=== PATIENT | female | born 1980 | race African-American/Black ===

== ENCOUNTER 2022-04-13 15:01 | Emergency (ER) | payer BC ==
[2022-04-13 16:03] LABS: Bacteria/HPF 1+ HPF (None Seen); Bilirubin Negative (Negative); Blood, Urine Trace (Negative); Clarity Clear (Clear); Glucose, Urine (Dipstick) Normal (Negative); Ketone, Urine Negative (Negative); Leukocyte 500 Leu/uL (Negative); Nitrite Negative (Negative); Protein, Urine (Dipstick) Negative (Neg-Trace); Specific Gravity, Urine 1.009 (1.002-1.036); Squamous Epithelial 0-3 HPF (0-3); Urobilinogen Normal mg/dL (Less than 2); pH, Urine 6.5 (5.0-9.0)
[2022-04-13 16:04] LABS: Pregnancy Test - Urine (BHCG) Negative (Negative); Pregu Control Background? CLEAR/WHITE (CLR/WHITE); Pregu Control Bar Appear? YES (CONTROL BAR); Specific Gravity 1.009 (1.002-1.036)
[2022-04-13] MEDS ORDERED: cefTRIAXone\\ROCEPHIN 500 MG VIAL ONE (16:40)
[2022-04-14 19:12] LABS: Chlamydia by PCR *Indeterminate (NotDetected); GC by PCR *Indeterminate (NotDetected)
== END 2022-04-13 17:41 | disposition home or self-care (01) ==
LOC: ERS 15:01
DX: N72 Inflammatory disease of cervix uteri (principal); N76.0 Acute vaginitis; F17.210 Nicotine dependence, cigarettes, uncomplicated
CPT/HCPCS: 81003; 81015; 81025; 87480; 87491; 87510; 87591; 87660; 96372; 99283; J0696

== ENCOUNTER 2023-05-09 22:45 | Emergency (ER) | payer BC, SELFPAY ==
[2023-05-09] MEDS ORDERED: Dexamethasone 10 MG/ML VIAL ONE (23:40)
[2023-05-10 00:21] LABS: Influenza A by NAA Not Detected (NotDetected); SARS-CoV-2 NAA Rapid Test Not Detected (NotDetected)
== END 2023-05-10 01:01 | disposition home or self-care (01) ==
LOC: ERS 22:45
DX: J01.90 Acute sinusitis, unspecified (principal); F17.210 Nicotine dependence, cigarettes, uncomplicated
CPT/HCPCS: 96372; 99283; J1100

== ENCOUNTER 2023-05-15 21:28 | Emergency (ER) | payer SELFPAY | END 2023-05-15 22:52 | disposition home or self-care (01) | LOC: ERS 21:28 | DX: R42 Dizziness and giddiness (principal); F17.210 Nicotine dependence, cigarettes, uncomplicated | CPT/HCPCS: 99283 ==

== ENCOUNTER 2023-09-23 04:55 | Emergency (ER) | payer SELFPAY ==
[2023-09-23 05:24] LABS: #Basophils 0.04 10x3/uL (0.0-0.2); %Basophils 0.8 % (0.0-1.0); %Eosinophils 1.2 % (0.0-10.0); %Lymphocytes 30.7 % (21.0-51.0); %Monocytes 8.4 % (0.0-10.0); %Neutrophils 58.9 % (42.0-75.0); Hemoglobin 8.9 g/dL (12.0-16.0); Mean Corpuscular HGB CONC 30.7 g/dL (32.0-36.0); Mean Corpuscular Hemoglobin 22.8 pg (27.0-31.0); Mean Corpuscular Volume 74.4 fL (78.0-98.0); Mean Platelet Volume 9.2 fL (7.4-10.4); Platelet Count 418 10x3/uL (130-400); RBC Distribution Width 19.7 % (11.5-14.5)
[2023-09-23 05:38] LABS: ALT (SGPT) 25 U/L (8-55); AST (SGOT) 35 U/L (5-34); Albumin 3.6 g/dL (3.5-5.0); Alkaline Phosphatase 91 U/L (40-110); Anion Gap 14 mmol/L (10-20); BUN (Urea Nitrogen) 10 mg/dL (7.0-18.7); Bilirubin, Total 0.3 mg/dL (0.2-1.2); Calc. Creatinine Clearance 0 mL/min (70-130); Carbon Dioxide 21 mmol/L (22-29); Chloride 106 mmol/L (98-107); Estimated GFR 91; Globulin 4.1 g/dL (2.4-3.5); Glucose 137 mg/dL (70-105); Protein, Total 7.7 g/dL (6.0-8.3); Sodium 137 mmol/L (136-145)
[2023-09-23] MEDS ORDERED: Acetaminophen 500 MG TAB ONE (08:43)
[2023-09-23] MEDS ORDERED: Dexamethasone 10 MG/ML VIAL ONE (08:43)
[2023-09-23] MEDS ORDERED: Ketorolac Tromethamine 30 MG (1 mL) VIAL ONE (08:43)
[2023-09-23 09:30] LABS: Influenza A by NAA Not Detected (NotDetected); Influenza B by NAA Not Detected (NotDetected); SARS-CoV-2 NAA Rapid Test Not Detected (NotDetected)
[2023-09-23 10:55] LABS: Troponin I Less than 0.010 ng/mL (< 0.028)
== END 2023-09-23 11:35 | disposition home or self-care (01) ==
LOC: ERS 04:55
DX: R06.00 Dyspnea, unspecified (principal); R94.31 Abnormal electrocardiogram [ECG] [EKG]; F17.210 Nicotine dependence, cigarettes, uncomplicated
CPT/HCPCS: 36415; 71045; 80053; 83735; 84484; 85025; 93005; 96374; J1100; J1885

== ENCOUNTER 2024-01-14 18:24 | Inpatient (IN) | payer SELFPAY ==
[~2024-01-14 18:24] MED LIST: Iopamidol-370 76% 500 ML MDV (1 ML CHARGE) ONE
[2024-01-14 19:33] LABS: BHCG - Serum Negative (NEGATIVE); Pregs Control Background? CLEAR/WHITE (CLR/WHITE); Pregs Control Bar Appear? YES (CONTROL BAR)
[2024-01-14 19:39] LABS: #Basophils 0.05 10x3/uL (0.0-0.2); %Eosinophils 1.4 % (0.0-10.0); %Lymphocytes 36.5 % (21.0-51.0); %Monocytes 8.8 % (0.0-10.0); %Neutrophils 52.1 % (42.0-75.0); Hematocrit 24.1 % (36.0-47.0); Hemoglobin 7.1 g/dL (12.0-16.0); Mean Corpuscular HGB CONC 29.5 g/dL (32.0-36.0); Mean Corpuscular Hemoglobin 20.9 pg (27.0-31.0); Mean Corpuscular Volume 71.1 fL (78.0-98.0); Mean Platelet Volume 8.9 fL (7.4-10.4); Platelet Count 396 10x3/uL (130-400); RBC Distribution Width 19.4 % (11.5-14.5); Red Blood Cell (RBC) Count 3.39 mill/uL (4.20-5.40)
[2024-01-14 19:40] LABS: ALT (SGPT) 70 U/L (8-55); AST (SGOT) 82 U/L (5-34); Albumin 3.2 g/dL (3.5-5.0); Alkaline Phosphatase 106 U/L (40-110); Anion Gap 12 mmol/L (10-20); BUN (Urea Nitrogen) 8 mg/dL (7.0-18.7); Bilirubin, Total 0.3 mg/dL (0.2-1.2); Calc. Creatinine Clearance 0 mL/min (70-130); Calcium 8.5 mg/dL (7.8-10.44); Carbon Dioxide 21 mmol/L (22-29); Chloride 105 mmol/L (98-107); Estimated GFR 95; Globulin 3.8 g/dL (2.4-3.5); Glucose 102 mg/dL (70-105); Lipase 38 U/L (8-78); Potassium 4.3 mmol/L (3.5-5.1); Sodium 134 mmol/L (136-145)
[2024-01-14 19:44] LABS: Troponin I 0.159 ng/mL (< 0.028)
[2024-01-14 20:18] LABS: Anisocytosis MODERATE=16-30 cells HPF (0-5); Burr Cells SLIGHT = 2-5 cells HPF (0-1); Hypochromia SLIGHT = 6-15 cells HPF (0-5); Microcytosis SLIGHT = 6-15 cells HPF (0-5); Ovalocytes SLIGHT = 2-5 cells HPF (0-1); Platelet Adequacy Comment Platelets Normal; Polychromasia SLIGHT = 2-3 cells HPF (0-2); Schistocytes SLIGHT = 2-5 cells HPF (0-1); Target Cells MODERATE= 6-15 cells HPF (0-1)
[2024-01-14] MEDS ORDERED: Morphine 2 MG/ML VIAL ONE (20:34)
[2024-01-14] MEDS ORDERED: Furosemide 40 MG (4 mL) VIAL ONE (20:48)
[2024-01-14] MEDS ORDERED: Nitroglycerin 0.4 MG TAB 1 EACH ONE (21:00)
[2024-01-14] MEDS ORDERED: Ipratropium/Albuterol 3 ML NEB ONE (21:09)
[2024-01-14] MEDS ORDERED: Acetaminophen 325 MG TAB ONE ×2 (22:06→22:15)
[2024-01-14] MEDS ORDERED: Lorazepam 1 MG TAB ONE (22:06)
[2024-01-14] MEDS ORDERED: Enoxaparin 60 MG (0.6 mL) SYRINGE ONE (22:06)
[2024-01-14 22:47] VITALS: BMI 28.3
[2024-01-14] MEDS ORDERED: Acetaminophen 650 MG Suppository PR PRN (22:48)
[2024-01-14] MEDS ORDERED: Ondansetron ODT 4 MG TAB PO PRN (22:48)
[2024-01-14] MEDS ORDERED: Ipratropium/Albuterol 3 ML NEB NEB PRN (23:04)
[2024-01-14] MEDS ORDERED: Cyclobenzaprine 10 MG TAB PO SCH (23:15)
[2024-01-14] MEDS: Acetaminophen 325 MG TAB PO SCH (23:18)
[2024-01-14] MEDS: Morphine 2 MG/ML VIAL SLOW IVP PRN (23:32)
[2024-01-14] MEDS: Cyclobenzaprine 10 MG TAB PO SCH (23:32)
[2024-01-14 23:33] LABS: Actual Bicarbonate (HCO3v) 20.4 mEq/L (22-28); Calcium, Ionized (venous) 1.02 mmol/L (1.16-1.32); Chloride (VBG) 106 mmol/L (98-106); Hematocrit-VBG 23 % (36.0-47.0); Hemoglobin (Hb) 7.7 g/dL (11.7-15.5); Potassium (VBG) 4.06 mmol/L (3.70-5.30); Sodium 136 mmol/L (133-146); pH (venous) 7.455 (7.32-7.43)
[2024-01-14 23:33] LABS: Troponin I 0.173 ng/mL (< 0.028)
[2024-01-15 00:47] LABS: Amphetamine Not Detected (NotDetected); Barbiturates Screen Not Detected (NotDetected); Benzodiazepine Screen Not Detected (NotDetected); Cocaine Metabolite Screen Not Detected (NotDetected); Methadone Not Detected (NotDetected); Methamphetamine Not Detected (NotDetected); Opiate Screen Detected (NotDetected); Oxycodone Screen Not Detected (NotDetected); Phencyclidine (PCP) Not Detected (NotDetected); THC/Cannabinoid Screen Not Detected (NotDetected); Tricyclic Screen Not Detected (NotDetected)
[2024-01-15] MEDS: Lidocaine 4% Patch TD SCH (01:00)
[2024-01-15 04:34] LABS: #Basophils 0.05 10x3/uL (0.0-0.2); %Basophils 1.1 % (0.0-1.0); %Eosinophils 1.3 % (0.0-10.0); %Lymphocytes 40.6 % (21.0-51.0); %Monocytes 8.5 % (0.0-10.0); %Neutrophils 48.3 % (42.0-75.0); Hematocrit 25.9 % (36.0-47.0); Hemoglobin 7.6 g/dL (12.0-16.0); Mean Corpuscular HGB CONC 29.3 g/dL (32.0-36.0); Mean Corpuscular Hemoglobin 21.7 pg (27.0-31.0); Mean Corpuscular Volume 73.8 fL (78.0-98.0); Mean Platelet Volume 9.2 fL (7.4-10.4); Platelet Count 366 10x3/uL (130-400); RBC Distribution Width 19.6 % (11.5-14.5); Red Blood Cell (RBC) Count 3.51 mill/uL (4.20-5.40)
[2024-01-15 04:42] LABS: Iron 40 ug/dL (50-170); Iron Binding Capacity, Total 411 mcg/dL (265-497)
[2024-01-15 04:48] LABS: ALT (SGPT) 65 U/L (8-55); AST (SGOT) 74 U/L (5-34); Alkaline Phosphatase 99 U/L (40-110); Anion Gap 15 mmol/L (10-20); BUN (Urea Nitrogen) 8 mg/dL (7.0-18.7); Bilirubin, Total 0.6 mg/dL (0.2-1.2); Calc. Creatinine Clearance 130 mL/min (70-130); Carbon Dioxide 18 mmol/L (22-29); Chloride 107 mmol/L (98-107); Estimated GFR 98; Globulin 3.4 g/dL (2.4-3.5); Glucose 95 mg/dL (70-105); Iron 42 ug/dL (50-170); Iron Binding Capacity, Total 411 mcg/dL (265-497); Protein, Total 6.4 g/dL (6.0-8.3); Sodium 136 mmol/L (136-145)
[2024-01-15 04:49] LABS: Troponin I 0.187 ng/mL (< 0.028)
[2024-01-15] MEDS: Furosemide 40 MG (4 mL) VIAL SLOW IVP SCH (05:33)
[2024-01-15] MEDS: Famotidine 20 MG TAB PO SCH (08:04)
[2024-01-15] MEDS: FLU (Fluarix Triv) TS24-25(6MOS UP)/PF 45 MCG/0.5 ML Syringe IM ONE (08:05)
[2024-01-15] MEDS: Famotidine/PF 20 mg/2ml Vial SLOW IVP SCH (08:06)
[2024-01-15] MEDS ORDERED: Lidocaine 4% Patch TD SCH (09:00)
[2024-01-15] MEDS: Cyclobenzaprine 10 MG TAB PO PRN (10:07)
[2024-01-15 10:30] LABS: Troponin I 0.165 ng/mL (< 0.028)
[2024-01-15] MEDS: Transdermal Patch Removal TOP SCH (13:00)
[2024-01-15 14:47] LABS: Anion Gap 14 mmol/L (10-20); BUN (Urea Nitrogen) 8 mg/dL (7.0-18.7); Calc. Creatinine Clearance 106 mL/min (70-130); Calcium 8.9 mg/dL (7.8-10.44); Carbon Dioxide 27 mmol/L (22-29); Chloride 101 mmol/L (98-107); Estimated GFR 76; Glucose 104 mg/dL (70-105); Magnesium 1.9 mg/dL (1.6-2.6); Potassium 3.7 mmol/L (3.5-5.1); Sodium 138 mmol/L (136-145)
[2024-01-15] MEDS ORDERED: Magnesium 2 GM/50 ML(in water) 2 GM in Premix 1 BAG IVPB SCH (15:30)
[2024-01-15] MEDS ORDERED: Potassium Chloride 20 MEQ TAB PO SCH (15:30)
[2024-01-15] MEDS ORDERED: Magnesium Sulfate 4 GM in Sodium Chloride 0.9% 250 ML 250 ML IVPB SCH (17:30)
[2024-01-15] MEDS: Potassium Chloride 20 MEQ TAB PO SCH (18:08)
[2024-01-15] MEDS: Magnesium Sulfate In Water 4 GM in Premix 1 BAG IVPB SCH (18:09)
[2024-01-15] MEDS: Sacubitril 24MG/Valsartan 26 MG TAB PO SCH (19:37)
[2024-01-16 07:21] LABS: #Basophils 0.05 10x3/uL (0.0-0.2); %Basophils 0.8 % (0.0-1.0); %Eosinophils 2.5 % (0.0-10.0); %Lymphocytes 27.5 % (21.0-51.0); Hematocrit 35.4 % (36.0-47.0); Hemoglobin 10.4 g/dL (12.0-16.0); Mean Corpuscular HGB CONC 29.4 g/dL (32.0-36.0); Mean Corpuscular Hemoglobin 21.8 pg (27.0-31.0); Mean Corpuscular Volume 74.4 fL (78.0-98.0); Mean Platelet Volume 9.3 fL (7.4-10.4); Platelet Count 474 10x3/uL (130-400); RBC Distribution Width 19.8 % (11.5-14.5); Red Blood Cell (RBC) Count 4.76 mill/uL (4.20-5.40)
[2024-01-16 07:47] LABS: ALT (SGPT) 70 U/L (8-55); AST (SGOT) 76 U/L (5-34); Albumin 3.1 g/dL (3.5-5.0); Alkaline Phosphatase 112 U/L (40-110); Bilirubin, Direct 0.2 mg/dL (0.1-0.3); Bilirubin, Total 0.4 mg/dL (0.2-1.2)
[2024-01-16 07:49] LABS: Anion Gap 16 mmol/L (10-20); BUN (Urea Nitrogen) 5 mg/dL (7.0-18.7); Calc. Creatinine Clearance 94 mL/min (70-130); Calcium 8.9 mg/dL (7.8-10.44); Carbon Dioxide 22 mmol/L (22-29); Chloride 105 mmol/L (98-107); Estimated GFR 103; Glucose 101 mg/dL (70-105); Magnesium 2.2 mg/dL (1.6-2.6); Potassium 4.7 mmol/L (3.5-5.1); Sodium 138 mmol/L (136-145)
[2024-01-16] MEDS: Spironolactone 25 MG TAB PO SCH (08:47)
[2024-01-16] MEDS: Carvedilol 3.125 MG TAB PO SCH (08:47)
[2024-01-16] MEDS ORDERED: Senokot S 8.6-50 MG TAB PO PRN (10:09)
[2024-01-16] MEDS: Potassium Chloride 20 MEQ TAB PO SCH (10:58)
[2024-01-16] MEDS: Furosemide 40 MG (4 mL) VIAL SLOW IVP SCH (10:58)
[2024-01-16] MEDS: Guaifenesin DM 100-10/5 ML UDCUP PO PRN (10:59)
[2024-01-16] MEDS: Empagliflozin 10 MG TAB PO SCH (11:27)
[2024-01-16] MEDS: Sodium Ferric Gluconate 250 MG in Sodium Chloride 0.9% 250 ML 250 ML IVPB SCH (11:41)
[2024-01-16] MEDS: Sacubitril 49 MG/Valsartan 51 MG TABLET PO SCH (20:33)
[2024-01-17 04:36] LABS: ALT (SGPT) 59 U/L (8-55); AST (SGOT) 53 U/L (5-34); Alkaline Phosphatase 110 U/L (40-110); Anion Gap 13 mmol/L (10-20); BUN (Urea Nitrogen) 6 mg/dL (7.0-18.7); Bilirubin, Direct 0.2 mg/dL (0.1-0.3); Bilirubin, Total 0.3 mg/dL (0.2-1.2); Calc. Creatinine Clearance 92 mL/min (70-130); Calcium 8.6 mg/dL (7.8-10.44); Carbon Dioxide 22 mmol/L (22-29); Chloride 105 mmol/L (98-107); Estimated GFR 99; Glucose 105 mg/dL (70-105); Magnesium 2.1 mg/dL (1.6-2.6); Potassium 4.2 mmol/L (3.5-5.1); Protein, Total 6.9 g/dL (6.0-8.3); Sodium 136 mmol/L (136-145)
[2024-01-17] MEDS: Empagliflozin 10 MG TAB PO SCH (08:41)
[2024-01-17] MEDS: Benzonatate 100 MG CAP PO PRN (08:41)
[2024-01-17] MEDS: Potassium Chloride 20 MEQ TAB PO SCH (08:41)
[2024-01-17] MEDS: Furosemide 20 MG (2 mL) VIAL SLOW IVP SCH (08:42)
[2024-01-17] MEDS: Ondansetron PF 4 MG/2 ML Vial IVP PRN (19:17)
[2024-01-18 04:43] LABS: Anion Gap 14 mmol/L (10-20); BUN (Urea Nitrogen) 10 mg/dL (7.0-18.7); Calc. Creatinine Clearance 67 mL/min (70-130); Calcium 8.9 mg/dL (7.8-10.44); Carbon Dioxide 24 mmol/L (22-29); Chloride 103 mmol/L (98-107); Estimated GFR 71; Glucose 100 mg/dL (70-105); Magnesium 2.2 mg/dL (1.6-2.6); Potassium 5.2 mmol/L (3.5-5.1); Sodium 136 mmol/L (136-145)
[2024-01-18 04:56] LABS: ALT (SGPT) 48 U/L (8-55); AST (SGOT) 40 U/L (5-34); Albumin 3.1 g/dL (3.5-5.0); Alkaline Phosphatase 102 U/L (40-110); Bilirubin, Total 0.2 mg/dL (0.2-1.2); Protein, Total 6.9 g/dL (6.0-8.3)
[2024-01-18 06:20] LABS: Bilirubin, Direct 0.1 mg/dL (0.1-0.3)
[2024-01-18] MEDS: Carvedilol 3.125 MG TAB PO SCH (10:29)
[2024-01-18] MEDS: Furosemide 20 MG (2 mL) VIAL SLOW IVP SCH (10:30)
[2024-01-18] MEDS: ALPRAZolam 0.25 MG TAB PO SCH (12:27)
[2024-01-19 05:13] LABS: Anion Gap 14 mmol/L (10-20); BUN (Urea Nitrogen) 9 mg/dL (7.0-18.7); Calc. Creatinine Clearance 90 mL/min (70-130); Calcium 8.9 mg/dL (7.8-10.44); Carbon Dioxide 22 mmol/L (22-29); Chloride 103 mmol/L (98-107); Estimated GFR 101; Glucose 102 mg/dL (70-105); Potassium 4.7 mmol/L (3.5-5.1); Sodium 134 mmol/L (136-145)
[2024-01-19 05:16] LABS: ALT (SGPT) 40 U/L (8-55); AST (SGOT) 36 U/L (5-34); Albumin 3.2 g/dL (3.5-5.0); Alkaline Phosphatase 107 U/L (40-110); Bilirubin, Direct 0.1 mg/dL (0.1-0.3); Bilirubin, Total 0.2 mg/dL (0.2-1.2); Protein, Total 7.3 g/dL (6.0-8.3)
[2024-01-19] MEDS: guaiFENesin 200 MG TAB PO PRN (14:41)
[2024-01-19] MEDS: Spironolactone 25 MG TAB PO SCH (16:54)
[2024-01-20 05:08] LABS: #Basophils 0.07 10x3/uL (0.0-0.2); %Basophils 0.8 % (0.0-1.0); %Eosinophils 1.6 % (0.0-10.0); %Lymphocytes 16.1 % (21.0-51.0); %Monocytes 11.4 % (0.0-10.0); %Neutrophils 69.7 % (42.0-75.0); Hemoglobin 10.7 g/dL (12.0-16.0); Mean Corpuscular HGB CONC 30.6 g/dL (32.0-36.0); Mean Corpuscular Hemoglobin 21.7 pg (27.0-31.0); Platelet Count 499 10x3/uL (130-400); RBC Distribution Width 21.4 % (11.5-14.5); Red Blood Cell (RBC) Count 4.93 mill/uL (4.20-5.40)
[2024-01-20 05:14] LABS: ALT (SGPT) 37 U/L (8-55); AST (SGOT) 35 U/L (5-34); Albumin 3.4 g/dL (3.5-5.0); Alkaline Phosphatase 99 U/L (40-110); Anion Gap 14 mmol/L (10-20); BUN (Urea Nitrogen) 9 mg/dL (7.0-18.7); Bilirubin, Direct 0.2 mg/dL (0.1-0.3); Bilirubin, Total 0.4 mg/dL (0.2-1.2); Calc. Creatinine Clearance 93 mL/min (70-130); Calcium 9.1 mg/dL (7.8-10.44); Carbon Dioxide 22 mmol/L (22-29); Chloride 100 mmol/L (98-107); Estimated GFR 106; Glucose 105 mg/dL (70-105); Potassium 4.1 mmol/L (3.5-5.1); Protein, Total 7.9 g/dL (6.0-8.3); Sodium 132 mmol/L (136-145)
[2024-01-20 06:19] LABS: Hypochromia SLIGHT = 6-15 cells HPF (0-5); Microcytosis SLIGHT = 6-15 cells HPF (0-5); Platelet Adequacy Comment Platelets Increased; Polychromasia SLIGHT = 2-3 cells HPF (0-2)
[2024-01-20] MEDS: Loratadine 10 MG TAB PO SCH (08:13)
[2024-01-20] MEDS: Potassium Chloride 20 MEQ TAB PO SCH (09:06)
[2024-01-20] MEDS: Sodium Ferric Gluconate 250 MG in Sodium Chloride 0.9% 250 ML 250 ML IVPB SCH (11:44)
[2024-01-20] MEDS: Nicotine 14 MG PATCH TD PRN (12:01)
[2024-01-20 15:22] VITALS: BP 101/67; TEMP 98.3
== END 2024-01-20 16:00 | disposition home or self-care (01) | DRG 280 ==
LOC: ERS 18:24 → IMCU/EMU 21:44 → 2NO 01-15 15:10 → UNDODISIN 01-20 11:06
PROVIDERS: ADMIT Student in an Organized Health Care Education/Training Program; ATTEND Internal Medicine
PROC: 30233N1 Transfusion of Nonautologous Red Blood Cells into Peripheral Vein, Percutaneous Approach (ICD-10-PCS; principal; 2024-01-15)
DX: I50.23 Acute on chronic systolic (congestive) heart failure (principal); J96.01 Acute respiratory failure with hypoxia; I21.A1 Myocardial infarction type 2; I47.29 Other ventricular tachycardia; J45.909 Unspecified asthma, uncomplicated; F17.210 Nicotine dependence, cigarettes, uncomplicated; D50.9 Iron deficiency anemia, unspecified; D25.9 Leiomyoma of uterus, unspecified; R77.8 Other specified abnormalities of plasma proteins; I34.0 Nonrheumatic mitral (valve) insufficiency; E83.42 Hypomagnesemia; N92.0 Excessive and frequent menstruation with regular cycle
CPT/HCPCS: 36415; 36430; 51702; 71045; 71275; 74177; 80048; 80053; 80076; 80306; 82607; 82805; 83540; 83550; 83690; 83735; 83880; 84425; 84443; 84484; 84703; 85025; 85379; 86850; 86900; 86901; 90656; 93005; 93306; 93798; 93970; 94660; 96372; 96374; 96375; J1650; J1940; J2272; J2405; J2916; J3475; J7050; J7620; P9016; Q9967

== ENCOUNTER 2024-10-29 23:24 | Emergency (ER) | payer OTHER ==
[2024-10-30 00:46] LABS: #Basophils 0.05 10x3/uL (0.0-0.2); #Eosinophils 0.13 10x3/uL (0.0-0.7); #Monocytes 0.60 10x3/uL (0.11-0.59); #Neutrophils 2.78 10x3/uL (1.40-6.50); %Basophils 0.9 % (0.0-1.0); %Eosinophils 2.4 % (0.0-10.0); %Lymphocytes 34.8 % (21.0-51.0); %Monocytes 10.9 % (0.0-10.0); %Neutrophils 50.6 % (42.0-75.0); Hematocrit 34.4 % (36.0-47.0); Hemoglobin 10.6 g/dL (12.0-16.0); Mean Corpuscular Hemoglobin 27.0 pg (27.0-31.0); Mean Corpuscular Volume 87.5 fL (78.0-98.0); Platelet Count 360 10x3/uL (130-400); Red Blood Cell (RBC) Count 3.93 mill/uL (4.20-5.40); White Blood Cell (WBC) Count 5.49 10x3/uL (4.8-10.8)
[2024-10-30 01:10] LABS: ALT (SGPT) 12 U/L (Less than 34); AST (SGOT) 24 U/L (11-34); Albumin 4.0 g/dL (3.1-4.5); Alkaline Phosphatase 65 U/L (40-110); Anion Gap 12 mmol/L (10-20); BUN (Urea Nitrogen) 9 mg/dL (7.0-18.7); Bilirubin, Total 0.4 mg/dL (0.3-1.2); Calc. Creatinine Clearance 0 mL/min (70-130); Calcium 9.1 mg/dL (7.8-10.44); Carbon Dioxide 22 mmol/L (22-29); Chloride 105 mmol/L (98-107); Globulin 4.2 g/dL (2.4-3.5); Glucose 107 mg/dL (70-105); Potassium 4.1 mmol/L (3.5-5.1); Sodium 135 mmol/L (136-145)
[2024-10-30 03:11] LABS: Lipase 56 U/L (8-78); Magnesium 2.0 mg/dL (1.6-2.6)
[2024-10-30] MEDS ORDERED: Ketorolac Tromethamine 30 MG (1 mL) VIAL ONE (04:14)
== END 2024-10-30 04:37 | disposition home or self-care (01) ==
LOC: ERS 23:24
DX: R07.9 Chest pain, unspecified (principal); F17.210 Nicotine dependence, cigarettes, uncomplicated
CPT/HCPCS: 36415; 71045; 80053; 83690; 83735; 83880; 84484; 85025; 93005; 96374; J1885